=== PATIENT | male | born 1985 | race African-American/Black ===

== ENCOUNTER → 2018-07-17 20:30 | Outpatient (CLI) | payer SELFPAY ==
[2018-07-17 22:23] LABS: Urine N gonorrhoeae NOT DETECTED
[2018-07-18 09:13] LABS: Urine Chlamydia DETECTED
== END ==
PROVIDERS: Visit Provider Physician Assistant
DX: R36.9 Urethral discharge, unspecified (principal)
CPT/HCPCS: 87491; 87591

== ENCOUNTER 2018-10-15 19:11 | Emergency (ER) | payer OTHER, SELFPAY ==
[2018-10-15 19:15] VITALS: BP 154/84; PULSE 93; RESP 18; TEMP 36.2; O2SAT 99; BMI 35.9
[2018-10-15 22:16] VITALS: BP 139/84; PULSE 77; RESP 16; TEMP 37.3; O2SAT 99
[2018-10-15 22:56] LABS: Add Manual Diff / Slide Review NO; Basophils Absolute Auto 100 /uL (0-100); Basophils Percent Auto 1.3 % (0-2); Eosinophils Absolute Auto 200 /uL (0-450); Eosinophils Percent Auto 4.7 % (2-4); Hematocrit 46.5 % (41-53); Hemoglobin 15.8 g/dL (13.5-17.5); Lymphocytes Absolute Auto 1700 /uL (1100-4500); Lymphocytes Percent Auto 42.2 % (25-40); Mean Corpuscular HGB Conc 33.9 % (30-36); Mean Corpuscular Volume 85.7 fL (80-100); Monocytes Absolute Auto 400 /uL (0-900); Monocytes Percent Auto 11.1 % (3-14); Neutrophils Absolute Auto 1600 /uL (1500-7000); Neutrophils Percent Auto 40.7 % (50-75); Platelet Count 227 X10^3/uL (150-400); Red Blood Cell Count 5.43 X10^6/uL (4.5-5.9); Red Cell Distribution Width 14.5 % (11.6-14.8)
[2018-10-15 23:04] LABS: Lactate (Lactic Acid) 1.1 mmol/L (0.7-2.1)
[2018-10-15 23:05] LABS: Alanine Aminotransferase 49 IU/L (21-72); Albumin Globulin Ratio 1.2 (1.0-2.8); Alkaline Phosphatase 47 U/L (38-126); Aspartate Aminotransferase 80 IU/L (17-59); BUN Creatinine Ratio 16.7 (6-22); Bilirubin Total 0.5 mg/dL (0.2-1.3); Blood Urea Nitrogen 25 mg/dL (9-20); Calcium 9.7 mg/dL (8.4-10.2); Carbon Dioxide 26 mmol/L (22-32); Chloride 102 mmol/L (98-107); Estimated Glomerular Filt Rate 53.9 mL/min (>60); Globulin 4.1 g/dL (1.7-4.1); Glucose 119 mg/dL (70-100); HEMOLYSIS 36 (0-50); Potassium 4.7 mmol/L (3.4-5.1); Sodium 138 mmol/L (137-145); Total Protein 9.1 g/dL (6.3-8.2)
[2018-10-15] MEDS: SODIUM CHLORIDE 0.9% 1,000 ML 1000 ML IV (23:40)
[2018-10-16] VITALS: BP 132/71; PULSE 74; RESP 18; O2SAT 99
[2018-10-16 00:32] LABS: Creatine Kinase 2769 U/L (55-170)
[2018-10-16 00:38] LABS: Troponin I < 0.012 ng/mL (0.01-0.034)
[2018-10-16 01:00] VITALS: BP 124/69; PULSE 75; RESP 21; O2SAT 100
[2018-10-16] MEDS: SODIUM CHLORIDE 0.9% 1,000 ML 1000 ML IV ×2 (01:02→03:05)
[2018-10-16 01:04] LABS: CKMB % Relative Index 0.2 % (1.5-5.0); Creatine Kinase MB 4.77 ng/mL (<2.37)
--- NOTE | 2018-10-16 01:45 | ED_ITS ---
HPI - Weakness General Chief complaint: Weakness Stated complaint: blurred vision, no strength, possible dehydration Time Seen by Provider: 10/15/18 22:19 Source: patient Mode of arrival: ambulatory Limitations: no limitations History of Present Illness HPI Narrative: 32-year-old male, daily smoker, occasionally drinks presents with weakness, 49 and some lightheadedness that is been gradually worsening over the past days to weeks. 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 He denies any fever chills nor any significant pain but states that the symptoms remind him of a prior experience he had with rhabdomyolysis. He denies any recent travel or recent antibiotics Complaint: generalized weakness Onset (ago): day(s) Duration: progressively worsening Location: generalized Migration: none Severity: moderate Relieving factors: none Exacerbating factors: none Related Data Home Medications Medication Instructions Recorded Confirmed lisinopril 10 mg tablet 10 mg PO DAILY 07/17/18 07/17/18 Previous Rx's Medication Instructions Recorded azithromycin 1 gram oral packet 1 gram PO ONCE #1 each 07/17/18 Allergies Allergy/AdvReac Type Severity Reaction Status Date / Time No Known Drug Allergies Allergy Verified 10/15/18 19:19 Review of Systems Constitutional Denies chills, Reports fatigue, Denies fever(s), Reports lethargy and Denies weakness Eyes Denies change in vision, Denies eye discharge, Denies irritation and Denies loss of vision ENT Ears, Nose, Mouth, and Throat: Denies change in voice, Denies neck pain and Denies sore throat Cardiovascular Denies chest pain, Denies irregular heart rhythm, Denies lightheadedness, Denies palpitations, Denies dyspnea, Denies dyspnea on exertion and Denies orthopnea Respiratory Denies cough, Denies dyspnea, Denies dyspnea on exertion and Denies wheezing Gastrointestinal Gastrointestinal: Denies abdominal pain, Denies change in bowel habits, Denies diarrhea, Denies nausea and Denies vomiting Genitourinary Denies hematuria, Denies flank pain, Denies urinary incontinence and Denies urinary urgency Musculoskeletal Reports muscle cramps, Reports muscle weakness and Denies neck pain Integumentary/Breasts Denies pruritus, Denies erythema, Denies rash and Denies wounds Neurologic Denies confusion, Denies loss of vision and Denies weakness Psychiatric Denies anxiety, Denies confusion, Denies depression, Denies homicidal ideation and Denies suicidal ideation Endocrine Reports fatigue and Denies palpitations Hematologic/Lymphatic Denies easy bruising Allergic/Immunologic Denies wheezing PFSH Social History Smoking Status: Current every day smoker Social History Smoking Status: Current every day smoker Exam Narrative Exam Narrative: GENERAL: 32-year-old male appears stated age, in no obvious distress but obviously is fatigued HEAD: Atraumatic. Normocephalic. No temporal or scalp tenderness. EYES: Pupils equal round and reactive. Extraocular motions intact. No scleral icterus. No injection or drainage. ENT: Nose without bleeding, purulent drainage or septal hematoma. Throat without erythema, tonsillar hypertrophy or exudate. Uvula midline. Airway patent. NECK: Trachea midline. No JVD or lymphadenopathy. Supple, nontender, no meningeal signs. CARDIOVASCULAR: Regular rate and rhythm without murmurs, gallops, or rubs. RESPIRATORY: Clear to auscultation. Breath sounds equal bilaterally. No wheezes, rales, or rhonchi. GASTROINTESTINAL: Abdomen soft, non-tender, nondistended. No hepato- splenomegaly, or palpable masses. No guarding. EXTREMITIES: No clubbing, cyanosis, or edema. No joint tenderness, effusion, or edema noted. BACK: Nontender without deformity or crepitance. No flank tenderness. NEURO: AOx3. SKIN: No rash or erythema. Initial Vital Signs Initial Vital Signs: Vital Signs Temperature 97.2 F L 10/15/18 19:15 Pulse Rate 93 H 10/15/18 19:15 Respiratory Rate 18 10/15/18 19:15 Blood Pressure 154/84 H 10/15/18 19:15 Pulse Oximetry 99 10/15/18 19:15 Course Orders Ordered: ED Orders 10/15/18 22:46 CBC [Complete Blood Count AUTO DIFF] Stat Comprehensive Metabolic Panel Stat Lactate (Lactic Acid) Stat 10/16/18 00:14 Troponin & CK Cardiac Panel Stat 10/16/18 03:51 Creatine Kinase Stat Creatinine & eGFR Stat Discontinued Medications Sodium Chloride (Normal Saline 0.9%) 1,000 mls @ 1,000 mls/hr IV BOLUS ONE Stop: 10/16/18 00:19 Last Infusion: 10/16/18 01:02 Dose: 0 mls/hr Admin: 10/15/18 23:40 Dose: 1,000 mls/hr Sodium Chloride (Normal Saline 0.9%) 1,000 mls @ 1,000 mls/hr IV BOLUS ONE Stop: 10/16/18 02:00 Last Infusion: 10/16/18 02:35 Dose: 0 mls/hr Admin: 10/16/18 01:02 Dose: 1,000 mls/hr Sodium Chloride (Normal Saline 0.9%) 1,000 mls @ 1,000 mls/hr IV BOLUS ONE Stop: 10/16/18 02:44 Last Infusion: 10/16/18 05:01 Dose: 0 mls/hr Admin: 10/16/18 03:05 Dose: 1,000 mls/hr Vital Signs - 8 hr 10/15/18 22:16 10/16/18 00:00 10/16/18 01:00 Temperature 99.2 F Pulse Rate 77 74 75 Respiratory Rate 16 18 21 Blood Pressure [Right Wrist] 139/84 132/71 124/69 Pulse Oximetry 99 99 100 10/16/18 03:28 10/16/18 04:48 Temperature Pulse Rate 62 62 Respiratory Rate 16 18 Blood Pressure [Right Wrist] 123/75 140/79 Pulse Oximetry 98 99 MDM - Weakness Lab Data Result diagrams: 10/15/18 22:46 10/16/18 03:51 Lab Results 10/15/18 10/15/18 10/15/18 Range/Units 22:46 22:46 22:46 WBC 4.0 L (4.5-11.0) X10^3/uL RBC 5.43 (4.5-5.9) X10^6/uL Hgb 15.8 (13.5-17.5) g/dL Hct 46.5 (41-53) % MCV 85.7 (80-100) fL MCH 29.0 (26-34) PG MCHC 33.9 (30-36) % RDW 14.5 (11.6-14.8) % Plt Count 227 (150-400) X10^3/uL Neut % (Auto) 40.7 L (50-75) % Lymph % (Auto) 42.2 H (25-40) % [place] % (Auto) 11.1 (3-14) % Eos % (Auto) 4.7 H (2-4) % Baso % (Auto) 1.3 (0-2) % Neut # (Auto) 1600 (3153-8314) /uL Lymph # (Auto) 1700 (1125-3487) /uL [place] # (Auto) 400 (0-900) /uL Eos # (Auto) 200 (0-450) /uL Baso # (Auto) 100 (0-100) /uL Sodium 138 (137-145) mmol/L Potassium 4.7 (3.4-5.1) mmol/L Chloride 102 (98-107) mmol/L Carbon Dioxide 26 (22-32) mmol/L BUN 25 H (9-20) mg/dL Creatinine 1.50 H (0.66-1.25) mg/dL Estimated GFR 53.9 L (>60) mL/min BUN/Creatinine Ratio 16.7 (6-22) Glucose 119 H (70-100) mg/dL Lactate 1.1 (0.7-2.1) mmol/L Calcium 9.7 (8.4-10.2) mg/dL Total Bilirubin 0.5 (0.2-1.3) mg/dL AST 80 H (17-59) IU/L ALT 49 (21-72) IU/L Alkaline Phosphatase 47 (38-126) U/L Total Creatine Kinase (55-170) U/L CK-MB (CK-2) (<2.37) ng/mL CK-MB (CK-2) Rel Index (1.5-5.0) % Troponin I (0.01-0.034) ng/mL Total Protein 9.1 H (6.3-8.2) g/dL Albumin 5.0 (3.5-5.0) g/dL Globulin 4.1 (1.7-4.1) g/dL Albumin/Globulin Ratio 1.2 (1.0-2.8) 10/15/18 10/16/18 Range/Units 22:46 03:51 WBC (4.5-11.0) X10^3/uL RBC (4.5-5.9) X10^6/uL Hgb (13.5-17.5) g/dL Hct (41-53) % MCV (80-100) fL MCH (26-34) PG MCHC (30-36) % RDW (11.6-14.8) % Plt Count (150-400) X10^3/uL Neut % (Auto) (50-75) % Lymph % (Auto) (25-40) % [place] % (Auto) (3-14) % Eos % (Auto) (2-4) % Baso % (Auto) (0-2) % Neut # (Auto) (7550-8528) /uL Lymph # (Auto) (5162-3003) /uL [place] # (Auto) (0-900) /uL Eos # (Auto) (0-450) /uL Baso # (Auto) (0-100) /uL Sodium (137-145) mmol/L Potassium (3.4-5.1) mmol/L Chloride (98-107) mmol/L Carbon Dioxide (22-32) mmol/L BUN (9-20) mg/dL Creatinine 1.40 H (0.66-1.25) mg/dL Estimated GFR 58.4 L (>60) mL/min BUN/Creatinine Ratio (6-22) Glucose (70-100) mg/dL Lactate (0.7-2.1) mmol/L Calcium (8.4-10.2) mg/dL Total Bilirubin (0.2-1.3) mg/dL AST (17-59) IU/L ALT (21-72) IU/L Alkaline Phosphatase (38-126) U/L Total Creatine Kinase 2769 H 2167 H (55-170) U/L CK-MB (CK-2) 4.77 H (<2.37) ng/mL CK-MB (CK-2) Rel Index 0.2 L (1.5-5.0) % Troponin I < 0.012 (0.01-0.034) ng/mL Total Protein (6.3-8.2) g/dL Albumin (3.5-5.0) g/dL Globulin (1.7-4.1) g/dL Albumin/Globulin Ratio (1.0-2.8) Urine Dip Bedside Urine Glucose Negative Bedside Urine Bilirubin - Negative Bedside Urine Ketone - Negative Urine Specific [place] 1.020 Bedside Urine Occult Blood - Negative Bedside Urine pH 6.0 Bedside Urine Protein +/- 15 Bedside Urine Urobilinogen +/- 1mg Bedside Urine Nitrite - Negative Bedside Urine Leukocytes - Negative Esterase MDM Narrative Medical decision making narrative: The patient with history of rhabdo presents with dry mucous membranes, fatigue, lightheadedness. Initial creatinine is elevated at 1.5 (baseline is unknown). CK is elevated. After 3 L of fluid blood redrawn and there is some improvement in creatinine and CK. Patient amb ulates to the department and feels tremendous relief and states he feels great and wants to go home. I discussed with him that I would have hoped his labs improved a bit more and that he has rhabdomyolysis. I spent extensive time discussing kidney injury with him and my desire to bring him into the hospital. He states he absolutely does not want to come in despite this discussion. He has full capacity to make his own decisions and understands the risks. He assures me he will return if he feels worse. He has friends on dialysis and doesn't want to end up like them. His urine shows no signs of abnormality Discharge Plan Departure Patient Disposition: Home Clinical Impression: Acute dehydration Rhabdomyolysis Qualifiers: Rhabdomyolysis type: non-traumatic Qualified Code(s): M62.82 - Rhabdomyolysis Instructions: DI for Dehydration -- Adult Activity Restrictions/Additional Instructions: *You have been diagnosed with [ acute dehydration, mild rhabdo ] *What to do: *DRINK PLENTY OF FLUIDS *Be sure you get a primary doctor upon return to [place] *Return to ER if you should have any new, worsening or concerning symptoms, such as [ increasing fatigue, muscle pain, shortness of breath, dizziness, dark, brown or red urine versus other] Prescriptions: No Action lisinopril 10 mg tablet 10 mg PO DAILY RF: 0 azithromycin 1 gram packet 1 gram PO ONCE Qty: 1 RF: 0
[2018-10-16 03:28] VITALS: BP 123/75; PULSE 62; RESP 16; O2SAT 98
[2018-10-16 04:11] LABS: Estimated Glomerular Filt Rate 58.4 mL/min (>60)
[2018-10-16 04:19] LABS: Creatine Kinase 2167 U/L (55-170)
[2018-10-16 04:48] VITALS: BP 140/79; PULSE 62; RESP 18; O2SAT 99
== END 2018-10-16 05:10 | disposition home or self-care (01) ==
PROVIDERS: Emergency Provider Emergency Medicine
DX: E86.0 Dehydration (principal); M62.82 Rhabdomyolysis
CPT/HCPCS: 36415; 36591; 80053; 81003; 82550; 82553; 82565; 83605; 84484; 85025; 93005; 96360; 96361; 99283; 99284